=== PATIENT | female | born 2000 | race Caucasian/White ===

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

== ENCOUNTER → 2019-05-10 | Outpatient (CLI) | payer MEDICAID, OTHER ==
[2019-05-10 17:16] LABS: Basophils % (A) 0 %; Eosinophils # (A) 0.1 k/uL (0-0.7); Eosinophils % (A) 1 %; HCT 42.1 % (34.0-46.0); Lymphocytes # (A) 2.3 k/uL (1.0-4.8); Lymphocytes % (A) 34 %; MCH 29.8 pg (25.0-35.0); MCHC 33.2 g/dL (31.0-37.0); MCV 89.7 fL (80.0-100.0); Mean Platelet Volume 6.9; Monocytes # (A) 0.4 k/uL (0-1.0); Monocytes % (A) 6 %; Neutrophils # (A) 3.9 k/uL (1.3-7.7); Neutrophils % (A) 58 %; Platelet Count 286 k/uL (150-450); RDW 12.9 % (11.5-15.5); WBC 6.8 k/uL (4.0-11.0)
[2019-05-10 23:39] LABS: Albumin 4.9 g/dL (3.80-4.90); Albumin/Globulin Ratio 2.45 (1.60-3.17); Anion Gap 8.6 mmol/L (4.00-12.00); Calcium 10.1 mg/dL (8.7-10.3); Carbon Dioxide 27.4 mmol/L (21.6-31.8); Potassium 3.6 mmol/L (3.5-5.5); Total Bilirubin 0.4 mg/dL (0.3-1.2); Total Protein 6.9 g/dL (6.2-8.2)
== END | disposition home or self-care (01) ==
LOC: LABWHC1 16:40
PROVIDERS: ATTEND Family Medicine
DX: Z00.00 Encounter for general adult medical examination without abnormal findings (principal); R53.83 Other fatigue
CPT/HCPCS: 36415; 80053; 82465; 82607; 84443; 85025

== ENCOUNTER → 2019-11-16 | Outpatient (CLI) | payer MEDICAID, OTHER ==
--- NOTE | 2019-11-16 09:05 | US ---
EXAMINATION TYPE: US transvaginal DATE OF EXAM: 11/16/2019 COMPARISON: NONE CLINICAL HISTORY: R10.2 PELVIC PAIN,, Z97.[address] Pelvic pain since IUD insertion February 2019 TECHNIQUE: Transvaginal (TV). Transvaginal sonographic images were medically necessary to better ass ess the IUD placement as bladder was not full. Date of LMP: intermittent menstrual cycles with IUD EXAM MEASUREMENTS: Uterus: 5.9 x 3.8 x 2.9 cm Endometrial Stripe: 0.5 cm Right Ovary: 3.0 x 1.4 x 1.7 cm Left Ovary: 2.3 x 2.7 x 2.7 cm 1. Uterus: Anteverted with curved cervix noted 2. Endometrium: IUD is noted within endometrial canal in upper and mid endometrium 3. Right Ovary: multifollicular with largest simple follicle = 0.8 x 0.7 x 0.6cm 4. Left Ovary: multifollicular with largest involuting cyst = 1.5 x 1.5 x 1.8cm Spectral, color and waveform Doppler imaging shows good arterial and venous flow within the ovaries ; there is no evidence for ovarian torsion. 5. Bilateral Adnexa: wnl 6. Posterior cul-de-sac: wnl IMPRESSION: 1. Intrauterine device is centrally located within the endometrial canal spanning the lower and upper uterine segments. 2. Physiologic follicular changes of the ovaries. No endometrial thickening.
== END | disposition home or self-care (01) ==
LOC: RADUSWWP 07:32
PROVIDERS: ATTEND Obstetrics & Gynecology
DX: R10.2 Pelvic and perineal pain (principal); Z97.5 Presence of (intrauterine) contraceptive device
CPT/HCPCS: 76830

== ENCOUNTER → 2020-01-20 | Outpatient (CLI) | payer MEDICAID, OTHER ==
--- NOTE | 2020-01-22 00:48 | CT ---
EXAMINATION TYPE: CT abdomen pelvis w con DATE OF EXAM: 01/20/2020 COMPARISON: NONE HISTORY: 19-year-old female Back pain, urgency and burning urination, headaches TECHNIQUE: Contiguous axial scanning of the abdomen and pelvis following administration of 100 ml Iso paris 300 IV contrast. Delayed images through the kidneys and coronal/sagittal reconstructions perform ed. CT DLP: 310.7 mGycm Automated exposure control for dose reduction was used. FINDINGS: LUNG BASES: No significant abnormality is appreciated. LIVER/GB: No significant abnormality is appreciated. PANCREAS: No significant abnormality is seen. SPLEEN: No significant abnormality is seen. ADRENALS: No significant abnormality is seen. KIDNEYS: No significant abnormality is seen. Symmetric uptake and excretion of contrast from both kid neys. LYMPH NODES: No mesenteric or retroperitoneal lymphadenopathy. REPRODUCTIVE ORGANS: Uterus anteverted and oblique towards the right. IUD appears appropriately situa constantine within the uterine cavity. Small amount of air is noted within the left lateral fornix. Fluid yolanda ng the endovaginal canal can be correlated clinically. Otherwise, no abnormal fluid collection in the pelvis or pelvic lymphadenopathy. Bladder urine distended. No abnormal wall thickening seen. Neither ovary clearly identified. BOWEL: Some prominent fluid-filled small bowel loops in the left mid abdomen. There may be some shor t segment wall thickening along the splenic flexure of the colon, coronal image 44. Mild scattered st ool. Normal appendix. BONES: No osseous destructive process. IMPRESSION: 1. SOME PROMINENT FLUID-FILLED SMALL BOWEL LOOPS IN THE LEFT MID ABDOMEN AND SHORT SEGMENT MILD WALL THICKENING AT THE HEPATIC FLEXURE OF THE COLON. CORRELATE FOR POSSIBLE ENTEROCOLITIS. 2. FLUID WITHIN THE VAGINAL CANAL. CORRELATE FOR ANY VAGINAL DISCHARGE VERSUS MENSTRUATION. 3. IUD APPEARS APPROPRIATELY POSITIONED.
== END ==
LOC: RADCTMAIN 12:25
PROVIDERS: ATTEND Family Medicine
DX: K63.89 Other specified diseases of intestine (principal); N89.8 Other specified noninflammatory disorders of vagina; Z97.5 Presence of (intrauterine) contraceptive device
CPT/HCPCS: 74177; Q9967

== ENCOUNTER → 2020-05-29 | Outpatient (CLI) | payer MEDICAID, OTHER | END | disposition home or self-care (01) | LOC: LABWHC1 09:01 | PROVIDERS: ATTEND Otolaryngology | DX: Z53.9 Procedure and treatment not carried out, unspecified reason (principal) ==

== ENCOUNTER → 2020-06-04 | Outpatient (CLI) | payer MEDICAID, OTHER ==
[2020-06-05 13:21] LABS: Crab IgE <0.10 kU/L (<0.10); Crab IgE Class CLASS 0
[2020-06-05 13:23] LABS: Pork IgE Class CLASS 0
[2020-06-05 13:24] LABS: Beef IgE <0.10 kU/L (<0.10); Beef IgE Class CLASS 0
[2020-06-05 13:25] LABS: Yeast Bakers/Brew IgE <0.10 kU/L (<0.10); Yeast Bakers/Brew IgE Class CLASS 0
[2020-06-05 13:26] LABS: Chicken IgE Class CLASS 0; Gluten IgE Class CLASS 0
[2020-06-05 13:27] LABS: Cow's Milk IgE Class CLASS 0; Egg White IgE <0.10 kU/L (<0.10); Peanut IgE <0.10 kU/L (<0.10); Potato IgE <0.10 kU/L (<0.10); Potato IgE Class CLASS 0; Soybean IgE <0.10 kU/L (<0.10)
== END | disposition home or self-care (01) ==
LOC: LABWHC1 07:34
PROVIDERS: ATTEND Nurse Practitioner Family
DX: J30.89 Other allergic rhinitis (principal)
CPT/HCPCS: 36415; 86001; 86003

== ENCOUNTER → 2020-12-27 | Outpatient (CLI) | payer OTHER ==
[2020-12-27 15:52] LABS: Basophils # (A) 0.1 k/uL (0-0.2); Basophils % (A) 1 %; Eosinophils # (A) 0.1 k/uL (0-0.7); Eosinophils % (A) 1 %; HCT 44.3 % (34.0-46.0); Lymphocytes # (A) 2.1 k/uL (1.0-4.8); Lymphocytes % (A) 30 %; MCH 30.3 pg (25.0-35.0); MCV 89.4 fL (80.0-100.0); Mean Platelet Volume 7.3; Monocytes # (A) 0.3 k/uL (0-1.0); Monocytes % (A) 5 %; Neutrophils # (A) 4.3 k/uL (1.3-7.7); Neutrophils % (A) 63 %; Platelet Count 255 k/uL (150-450); RBC 4.95 m/uL (3.80-5.40); RDW 12.7 % (11.5-15.5); WBC 6.9 k/uL (3.8-10.6)
[2020-12-27 16:52] LABS: Erythrocyte Sedimentation Rate 3 mm/hr (0-20)
[2020-12-28 00:43] LABS: Anti-DNA, DS unit <1.0 IU/mL; Cyclic Citrull Pep IgG Unit <0.5 U/mL; Cyclic Citrullinated Pep IgG NEGATIVE (NEGATIVE); DNA Double-Stranded NEGATIVE (NEGATIVE)
[2020-12-28 00:58] LABS: African American GFR (CKD) 143.5 (60.0-200.0); Anion Gap 10.4 mmol/L (4.00-12.00); BUN/Creat Ratio 21.43 Ratio (12.00-20.00); C Reactive Protein, High Sens 0.59 mg/L (0.000-3.000); Calcium 10.3 mg/dL (8.7-10.3); Carbon Dioxide 27.6 mmol/L (21.6-31.8); Non-African American GFR(CKD) 123.9 (60.0-200.0)
== END | disposition home or self-care (01) ==
LOC: LABWHC1 14:49
PROVIDERS: ATTEND Family Medicine
DX: M25.50 Pain in unspecified joint (principal); R53.83 Other fatigue; N76.0 Acute vaginitis; B37.3 Candidiasis of vulva and vagina
CPT/HCPCS: 36415; 80048; 85025; 85652; 86038; 86141; 86200; 86225; 86235; 86431

== ENCOUNTER → 2022-03-26 | Outpatient (CLI) | payer MEDICAID, OTHER | END | disposition home or self-care (01) | LOC: LABWHC1 10:55 | PROVIDERS: ATTEND Otolaryngology | DX: J02.9 Acute pharyngitis, unspecified (principal); R43.0 Anosmia; J06.9 Acute upper respiratory infection, unspecified; R43.9 Unspecified disturbances of smell and taste | CPT/HCPCS: U0003; C9803 ==

== ENCOUNTER → 2023-03-19 | Outpatient (CLI) | payer MEDICAID, OTHER ==
[2023-03-19 15:44] LABS: ALT 21 U/L (8-44); AST 24 U/L (13-35); African American GFR (CKD) 147.2 (60.0-200.0); Albumin 4.9 g/dL (3.8-4.9); Albumin/Globulin Ratio 2.12 (1.60-3.17); Alkaline Phosphatase 69 U/L (41-126); BUN/Creat Ratio 20.58 Ratio (12.00-20.00); Blood Urea Nitrogen 12.8 mg/dL (9.0-27.0); Calcium 10.3 mg/dL (8.7-10.3); Carbon Dioxide 25.7 mmol/L (20.0-27.5); Chloride 103 mmol/L (96-109); Chol/HDL Ratio 2.33 Ratio; Globulin 2.3 g/dL (1.6-3.3); Glucose 73 mg/dL (70-110); LDL Cholesterol,Calculated 99.2 mg/dL (0.0-131.0); Potassium 3.8 mmol/L (3.5-5.5); Sodium 140 mmol/L (135-145); Total Protein 7.3 g/dL (6.2-8.2); VLDL Calculation 16.04 mg/dL (5.00-40.00)
== END | disposition home or self-care (01) ==
LOC: LABWHC1 09:23
PROVIDERS: ATTEND Nurse Practitioner Family
DX: E78.5 Hyperlipidemia, unspecified (principal); R53.83 Other fatigue
CPT/HCPCS: 36415; 80053; 80061

== ENCOUNTER → 2023-04-15 | Outpatient (CLI) | payer MEDICAID, OTHER | END | disposition home or self-care (01) | LOC: LABWHC1 16:02 | PROVIDERS: ATTEND Nurse Practitioner Family | DX: N91.2 Amenorrhea, unspecified (principal); Z87.59 Personal history of other complications of pregnancy, childbirth and the puerperium | CPT/HCPCS: 36415; 84702 ==

== ENCOUNTER → 2023-06-11 | Outpatient (CLI) | payer MEDICAID, OTHER ==
[2023-06-11 11:11] LABS: Basophils # (A) 0.07 X 10*3/uL (0.00-0.10); Basophils % (A) 1.4 %; Eosinophils # (A) 0.04 X 10*3/uL (0.04-0.35); Eosinophils % (A) 0.8 %; HCT 49.6 % (37.2-46.3); HGB 15.5 d/dL (12.0-15.0); Lymphocytes # (A) 1.95 X 10*3/uL (0.90-5.00); Lymphocytes % (A) 39.5 %; MCH 30.3 pg (27.0-32.0); MCHC 31.3 d/dL (32.0-37.0); MCV 96.9 FL (80.0-97.0); Mean Platelet Volume 10.1 FL (9.5-12.2); Monocytes # (A) 0.38 X 10*3/uL (0.20-1.00); Monocytes % (A) 7.7 %; NRBC Per 100 WBC 0 X 10*3/uL (0.00-0.01); Neutrophils # (A) 2.49 X 10*3/uL (1.80-7.70); Neutrophils % (A) 50.4 %; Platelet Count 254 X 10*3/uL (140-440); RBC 5.12 X 10*6/uL (4.10-5.20); RDW 12.9 % (11.5-14.5); WBC 4.94 X 10*3/uL (4.50-10.00)
[2023-06-11 11:46] LABS: ALT 33 U/L (8-44); AST 22 U/L (13-35); Albumin 5.1 d/dL (3.8-4.9); Albumin/Globulin Ratio 1.96 Ratio (1.60-3.17); Alkaline Phosphatase 61 U/L (41-126); BUN/Creat Ratio 13.57 Ratio (12.00-20.00); Blood Urea Nitrogen 9.5 mg/dL (9.0-27.0); Calcium 10.5 mg/dL (8.7-10.3); Carbon Dioxide 24.7 mmol/L (21.6-31.8); Chloride 102 mmol/L (96-109); Chol/HDL Ratio 2.31 Ratio; Globulin 2.6 d/dL (1.6-3.3); Glucose 73 mg/dL (70-110); LDL Cholesterol,Calculated 99.4 mg/dL (0.0-131.0); Sodium 139 mmol/L (135-145); Total Bilirubin 0.5 mg/dL (0.3-1.2); Total Protein 7.7 d/dL (6.2-8.2); VLDL Calculation 17.94 mg/dL (5.00-40.00)
== END | disposition home or self-care (01) ==
LOC: LABWHC1 07:02
PROVIDERS: ATTEND Family Medicine
DX: Z00.00 Encounter for general adult medical examination without abnormal findings (principal); B37.31 Acute candidiasis of vulva and vagina
CPT/HCPCS: 36415; 80053; 80061; 82306; 83036; 84443; 85025

== ENCOUNTER → 2023-08-17 | Outpatient (CLI) | payer OTHER ==
[2023-08-17 15:53] LABS: HCT 44.8 % (37.2-46.3); HGB 14.8 d/dL (12.0-15.0); MCH 29.2 pg (27.0-32.0); MCV 88.4 FL (80.0-97.0); Mean Platelet Volume 10.4 FL (9.5-12.2); NRBC Per 100 WBC 0 X 10*3/uL (0.00-0.01); Platelet Count 287 X 10*3/uL (140-440); RBC 5.07 X 10*6/uL (4.10-5.20); RDW 13.1 % (11.5-14.5)
[2023-08-17 16:08] LABS: Glucose 71 mg/dL (70-110)
[2023-08-17 17:51] LABS: Hepatitis B Surface Antigen Nonreactive
[2023-08-17 20:39] LABS: HIV 2 AB Non-Reactive (Non-Reactive); HIV AB P24 Non-Reactive (Non-Reactive); HIV P24 AG Non-Reactive (Non-Reactive)
[2023-08-18 05:57] LABS: Toxoplasma Antibody (IgG) <3.0 IU/mL (<7.2); Toxoplasma Antibody (IgM) <3.0 AU/mL (<8.0)
== END | disposition home or self-care (01) ==
LOC: LABWHC1 11:18
PROVIDERS: ATTEND Obstetrics & Gynecology
DX: O26.811 Pregnancy related exhaustion and fatigue, first trimester (principal); Z3A.00 Weeks of gestation of pregnancy not specified
CPT/HCPCS: 36415; 82565; 82947; 85027; 86762; 86777; 86778; 86780; 86850; 86900; 86901; 87340; 87390

== ENCOUNTER → 2023-12-05 | Outpatient (CLI) | payer MEDICAID, OTHER ==
[2023-12-05 22:31] VITALS: BP 120/69; PULSE 97; RESP 17; TEMP 98.6
--- NOTE | 2023-12-09 09:23 | P.MSEPDOC ---
Presenting Problems - Arrival Data Date of Arrival on Unit: 12/05/23 Time of Arrival on Unit: 20:08 Mode of Transport: Wheelchair - Complaint OB-Reason for Admission/Chief Complaint: Vaginal Bleeding Comment: pt states when she went to the bathroom around 1914 she noticed red blood and blood clot the size of half dollar, pt did state that she had intercourse earlier today Medical History - Information : 1 Para: 0 Term: 0 : 0 Abortions: Spontaneous or Elective: 0 Number of Living Children: 0 - Gestational Age Gestational Age by NEYDA (wks/days): 28 Weeks and 2 Days - History Complications: Placenta Previa Review of Systems - Review of Systems Constitutional: No problems Breast: No problems ENT: No problems Cardiovascular: No problems Respiratory: No problems Gastrointestinal: No problems Genitourinary: No problems Musculoskeletal: No problems Neurological: No problems Skin: No problems Vital Signs - Temperature Temperature: 98.6 F Temperature Source: Temporal Artery Scan - Pulse Right Pulse Rate: 97 Pulse Assessment Method: Pulse Oximetry - Respirations Respiratory Rate: 17 Oxygen Delivery Method: Room Air O2 Sat by Pulse Oximetry: 99 - Blood Pressure Right Arm Blood Pressure: 120/69 Blood Pressure Mean: 86 Blood Pressure Source: Automatic Cuff Medical Screen Scoring - Cervical Exam Membranes: Intact - Uterine Contractions Frequency From (mins): 2 Frequency To (mins): 10 Duration From (seconds): 50 Duration To (seconds): 60 Resting: Soft to palpation - Assessment - Baby A Baseline FHR: 155 Heart Rate - NICHD Category: Category I (Normal) NST: Reactive Physician Notification - Physician Notified Physician Notified Date: 12/05/23 Physician Notified Time: 20:35 Physician: Misty Euceda New Order Received: Yes (speculum exam and watch for 1 hour) - Notification Comment Comment: Spoke with Dr Euceda at 214, discussed pt, fhr/strip, okay to d/c to home Maternal Triage Index - Maternal Triage Index Presenting for scheduled procedure w/no complaint: No - Stat/Priority 1 Stat Priority 1: No - Urgent/Priority 2 Urgent Priority 2: Yes Provider Notified: Misty Euceda Provider Notified Time: 20:35 Criteria Met for Priority 2: vaginal bleeding Disposition - Disposition OB Disposition: Discharge to home Discharge Date: 12/05/23 Discharge Time: 22:00 I agree with the RN Medical Screening Exam: Yes Case reviewed; plan agreed upon as documented in EMR&OBIX.: Yes Diagnosis: SPOTTING COMPLICATING , THIRD TRIMESTER
== END ==
LOC: FBPOP 20:08
PROVIDERS: ATTEND Obstetrics & Gynecology
DX: O26.853 Spotting complicating pregnancy, third trimester (principal); Z3A.28 28 weeks gestation of pregnancy
CPT/HCPCS: 59025; 99213

== ENCOUNTER 2023-12-07 11:18 | Observation (INO) | payer MEDICAID, BC, OTHER ==
[2023-12-07] MEDS ORDERED: LACTATED RINGERS 1,000 ML IV SCH (12:00)
[2023-12-07 12:35] LABS: Basophils % (A) 0 %; Eosinophils # (A) 0.1 k/uL (0-0.7); Eosinophils % (A) 1 %; HGB 11.4 gm/dL (11.4-16.0); Lymphocytes # (A) 1.6 k/uL (1.0-4.8); Lymphocytes % (A) 16 %; MCH 31.6 pg (25.0-35.0); MCHC 34.6 g/dL (31.0-37.0); MCV 91.2 fL (80.0-100.0); Monocytes # (A) 0.5 k/uL (0-1.0); Monocytes % (A) 5 %; Neutrophils # (A) 7.4 k/uL (1.3-7.7); Neutrophils % (A) 77 %; Platelet Count 236 k/uL (150-450); RBC 3.62 m/uL (3.80-5.40); RDW 12.9 % (11.5-15.5); WBC 9.6 k/uL (3.8-10.6)
--- NOTE | 2023-12-07 12:43 | P.HPOB ---
History of Present Illness H&P Date: 12/07/23 Chief Complaint: Vaginal bleeding, known placenta previa This patient is a pleasant 23-year-old 1 para 0 female estimated date of confinement 02/25/2024 estimated gestational age 28-4/7 weeks who. Presented to labor and delivery initially on Wednesday after having bleeding after intercourse. Patient's care is with Dr. Munoz. care is complicated by a known complete previa at 19 weeks with most recent ultrasound showing marginal placenta previa in October. Patient was to be on pelvic rest, however had intercourse on Wednesday and about 7 hours later began having bright red bleeding. Patient did report here to labor and delivery and at that time was not having significant bleeding and nonstress test was reassuring. Patient was subsequently discharged home. Patient noted dark red or brown discharge yesterday however passed a large right red clot today. care appears to be otherwise uncomplicated. Blood type is A+. Review of Systems Genitourinary: Reports as per HPI, Reports abnormal vaginal bleeding, Reports Past Medical History Past Medical History: GERD/Reflux History of Any Multi-Drug Resistant Organisms: None Reported Past Surgical History: No Surgical Hx Reported Past Anesthesia/Blood Transfusion Reactions: No Reported Reaction Past Psychological History: No Psychological Hx Reported Smoking Status: Former smoker, Vaper Past Alcohol Use History: None Reported Past Drug Use History: None Reported Medications and Allergies Home Medications Medication Instructions Recorded Confirmed Type Vit No.179/Iron/Folic 1 tab PO DAILY 12/05/23 12/07/23 History [ Tablet] Allergies Allergy/AdvReac Type Severity Reaction Status Date / Time No Known Allergies Allergy Verified 12/07/23 11:51 Exam Intake and Output 12/06/23 12/07/23 12/07/23 22:59 06:59 14:59 Other: Weight 56.699 kg - OBG Physical Exam Abdomen: bowel sounds normal, no diffuse tenderness, no bruit present, no guarding noted, no hepatomegaly, no splenomegaly, no mass Vulva: both: normal Vagina: Speculum exam shows dark red blood and no active bleeding Uterus: enlarged Results blood work shows she is A positive, rubella immune, RPR is nonreactive, hepatitis B is negative, HIV is nonreactive, ultrasound at 19 weeks showed a complete placenta previa however most recent ultrasound done on November 10 showed there to be a marginal anterior placenta previa. Result Diagrams: 12/07/23 12:10 Abnormal Lab Results - Last 24 Hours (Table) 12/07/23 Range/Units 12:10 RBC 3.62 L (3.80-5.40) m/uL Hct 33.0 L (34.0-46.0) % Assessment and Plan Assessment: This is a pleasant 23-year-old 1 para 0 female 28-4/7 weeks gestation with known placenta previa with second episode of vaginal bleeding most likely secondary to intercourse. Because this is her second episode I feel is best to admit her to the hospital for continuous monitoring, Celestone therapy and repeat ultrasound. I discussed this with the patient and her partner and they understand and agreeable to this treatment plan. (1) 28 weeks gestation of Current Visit: Yes Status: Acute Code(s): Z3A.28 - 28 WEEKS GESTATION OF SNOMED Code(s): 36239704 (2) Placenta previa Current Visit: Yes Status: Acute Code(s): O44.00 - COMPLETE PLACENTA PREVIA NOS OR WITHOUT HEMOR, UNSP TRI SNOMED Code(s): 54388723 (3) Vaginal bleeding Current Visit: Yes Status: Acute Code(s): N93.9 - ABNORMAL UTERINE AND VAGINAL BLEEDING, UNSPECIFIED SNOMED Code(s): 841822049
[2023-12-07 12:48] LABS: Amphetamine Screen,Urine Not Detected (NotDetected); Barbiturate Screen,Urine Not Detected (NotDetected); Benzodiazepines Screen,Urine Not Detected (NotDetected); Cocaine Screen,Urine Not Detected (NotDetected); Methadone Screen, Urine Not Detected (NotDetected); Opiate Screen,Urine Not Detected (NotDetected); Oxycodone Screen, Urine Not Detected (NotDetected); Phencyclidine Screen,Urine Not Detected (NotDetected); Tricyclic Antidepressant,Urine Not Detected (NotDetected); Urn Cannabinoid Scrn Not Detected (NotDetected)
[2023-12-07] MEDS: BETAMET ACET-BETAMETH SOD PHOS 6 MG/ML MDV IM SCH (12:56)
[2023-12-07 13:53] VITALS: RESP 16
--- NOTE | 2023-12-07 16:30 | US ---
EXAMINATION TYPE: US OB >= 14 wk fetus DATE OF EXAM: 12/07/2023 COMPARISON: None CLINICAL INDICATION: Female, 23 years old with history of Known placenta previa, bleeding; vaginal bl eeding, known marginal placenta previa TECHNIQUE: Transabdominal (TA) GESTATIONAL AGE / DATING Physician Established: (28 weeks/4 days) EDC: 02/25/24 Dates by LMP: LMP unknown Dates by First Scan: no prior exam here Dates by Current Scan: (28 weeks/6 days) EDC: 02/23/24 SURVEY IUP: Single PLACENTA: Anterior PREVIA: Low Lying to marginal JEN: 16.8 cm Normal CERVICAL LENGTH (transabdominal: norm > 3.0cm): 3.2 cm BIOMETRY PRESENTATION: Vertex LIE: Longitudinal BPD: 6.9 cm 28 weeks / 0 days HC: 26.6 cm 29 weeks / 0 days AC: 24.7 cm 29 weeks / 0 days FL: 5.5 cm 29 weeks / 1 days ESTIMATED WEIGHT IN GRAMS: 1307 grams ESTIMATED WEIGHT IN LBS/OZ: 2 lbs. 14 oz. WEIGHT PERCENTAGE BASED ON ESTABLISHED DATES: 50% HC/AC: 1.07 Normal FL/AC: 22% Normal HEART RATE: 156 bpm RHYTHM: Normal IMPRESSION: 1. Single intrauterine gestation estimated at 28 weeks 6 days gestation based on current ultrasound m easurements. Cardiac activity measures 156 bpm. 2. Placental tip is near the cervical os. This is borderline low lying or marginal. Previa is not diego ntified.
[2023-12-08 08:41] VITALS: BP 117/58; PULSE 92; TEMP 97.6
--- NOTE | 2023-12-08 12:36 | P.DS ---
Providers Date of admission: 12/07/23 12:27 Expected date of discharge: 12/08/23 Attending physician: Layne Munoz Primary care physician: Stated None - Discharge Diagnosis(es) (1) Marginal placenta previa with intrapartum hemorrhage in third trimester Current Visit: Yes Status: Acute (2) 28 weeks gestation of Current Visit: Yes Status: Acute Hospital Course: Pt was admitted with second episode of bleeding. She had sex this last Wednesday and lifted a tote full of jamil decor. She then had a little bright red bleeding which turned brown and no active bleeding in triage-sent home per Dr Euceda. She represented yesterday with another episode of bright red bleeding-one clot about half dollar size. She was admitted by Dr Prakash and given a course of celestone. US showed no abruption and marginal previa. NSTs have been reactive. HEr bleeding is dark brown and had 2 small clots today, both about dime sized. She did have some irritability on toco today but it resolved quickly. Pt will be discharged home after the 2nd dose of celestone. Instructed again on pelvic rest and not to do heavy lifting. She will f/u with me in 1-2 weeks. Plan - Discharge Summary New Discharge Prescriptions: No Action Vit No.179/Iron/Folic [ Tablet] 1 tab PO DAILY Discharge Medication List Vit No.179/Iron/Folic [ Tablet] 1 tab PO DAILY 12/05/23 [History] Follow up Appointment(s)/Referral(s): Layne Munoz DO [Doctor of Osteopathic Medicine] - 1 Week Discharge Disposition: HOME SELF-CARE
[2023-12-08] MEDS: BETAMET ACET-BETAMETH SOD PHOS 6 MG/ML MDV IM SCH (12:43)
== END 2023-12-08 12:52 | disposition home or self-care (01) ==
LOC: FBPOP 11:18 → 4FBP 12:27
PROVIDERS: ADMIT Obstetrics & Gynecology; ATTEND Obstetrics & Gynecology
DX: O44.33 Partial placenta previa with hemorrhage, third trimester (principal); O99.613 Diseases of the digestive system complicating pregnancy, third trimester; K21.9 Gastro-esophageal reflux disease without esophagitis; Z3A.28 28 weeks gestation of pregnancy; Z87.891 Personal history of nicotine dependence
CPT/HCPCS: 59025; 99214; 96372 ×2; 85025; 80306; 76805; G0378 ×2; J0702 ×2; 36415

== ENCOUNTER 2024-01-05 19:47 | Inpatient (IN) | payer MEDICAID, BC, OTHER ==
[2024-01-05 20:53] LABS: Basophils % (A) 0 %; Eosinophils # (A) 0.1 k/uL (0-0.7); Eosinophils % (A) 1 %; HCT 34.5 % (34.0-46.0); HGB 11.9 gm/dL (11.4-16.0); Lymphocytes % (A) 17 %; MCH 30.3 pg (25.0-35.0); MCHC 34.3 g/dL (31.0-37.0); MCV 88.2 fL (80.0-100.0); Mean Platelet Volume 8.1; Monocytes # (A) 0.5 k/uL (0-1.0); Monocytes % (A) 5 %; Neutrophils # (A) 8.9 k/uL (1.3-7.7); Neutrophils % (A) 76 %; Platelet Count 253 k/uL (150-450); RBC 3.92 m/uL (3.80-5.40); RDW 13.1 % (11.5-15.5); WBC 11.6 k/uL (3.8-10.6)
[2024-01-05] MEDS: LACTATED RINGERS 1,000 ML IV SCH (21:05)
[2024-01-05] MEDS ORDERED: TRANEXAMIC 1,000 MG/100ML-NACL 1,000 MG in EMPTY BAG 1 BAG IV PRN (21:06)
[2024-01-05] MEDS ORDERED: CARBOPROST TROMETHAMINE 250 MCG/ML 1 ML AMP IM PRN (21:06)
[2024-01-05] MEDS ORDERED: OXYTOCIN 10 UNIT/ML 1 ML VIAL IM PRN (21:06)
[2024-01-05] MEDS ORDERED: miSOPROStoL 200 MCG TAB PO PRN (21:06)
[2024-01-05] MEDS ORDERED: METHYLERGONOVINE 0.2 MG/ML 1 ML AMP IM PRN (21:06)
[2024-01-05] MEDS: LACTATED RINGERS 1,000 ML IV ONE (21:10)
--- NOTE | 2024-01-05 21:17 | P.HPOB ---
History of Present Illness H&P Date: 01/05/24 Chief Complaint: Vaginal bleeding, known placenta previa This patient is a pleasant 23-year-old 1 para 0 female estimated date of confinement 02/25/2024 estimated gestational age 32-6/7 weeks who presents to labor and delivery with complaints of copious amounts of vaginal bleeding. Patient's care is per Dr. Munoz is complicated by a known placenta previa. Patient was admitted by myself on December 17 for similar episode and was given Celestone at that time. Patient's had no further bleeding until this morning and presented here to labor and delivery. At that time Dr. Munoz ordered an ultrasound which apparently was normal and patient was discharged home follow up in the office. Patient had increased bleeding later today and repeat presents to labor and delivery. Speculum exam at this time shows a large dark red clot and patient is having contractions every 2-6 minutes that are perceivable. I did contact Dr. Singh (maternal medicine) and phone conversation/consultation with him I discussed her clinical situation and he did not feel that she was stable for transfer and recommended to proceed with delivery at this time. Since the patient is having a significant amount of bleeding and nghia we'll proceed with immediate delivery at this time by section. I did discuss this with the patient and her mother in the understand the indication for delivery and the fact that the baby will need to be stabilized and transferred to a different facility. Review of Systems Constitutional: Reports as per HPI Genitourinary: Reports Past Medical History Past Medical History: GERD/Reflux History of Any Multi-Drug Resistant Organisms: None Reported Past Surgical History: No Surgical Hx Reported Past Anesthesia/Blood Transfusion Reactions: No Reported Reaction Smoking Status: Never smoker Past Alcohol Use History: None Reported Past Drug Use History: None Reported - Past Family History Mother Family Medical History: No Reported History Medications and Allergies Home Medications Medication Instructions Recorded Confirmed Type Vit No.179/Iron/Folic 1 tab PO DAILY 12/05/23 01/05/24 History [ Tablet] Allergies Allergy/AdvReac Type Severity Reaction Status Date / Time No Known Allergies Allergy Verified 01/05/24 19:52 Exam Intake and Output 01/05/24 01/05/24 01/05/24 06:59 14:59 22:59 Other: Weight 60.328 kg - OBG Physical Exam Abdomen: bowel sounds normal, no diffuse tenderness, no bruit present, no guarding noted, no hepatomegaly, no splenomegaly, no mass Vagina: normal moisture (Speculum examination the bedside shows large amount of dark red blood. I'm unable to visualize cervix), no discharge Uterus: enlarged Results Patient's blood type is A positive, rubella immune, RPR is nonreactive, hepat itis B is negative, HIV is nonreactive, group B strep is unknown, ultrasounds morning showed a vertex infant estimated weight 4 lbs. 6 oz. Result Diagrams: 01/05/24 20:22 Abnormal Lab Results - Last 24 Hours (Table) 01/05/24 Range/Units 20:22 WBC 11.6 H (3.8-10.6) k/uL Neutrophils # 8.9 H (1.3-7.7) k/uL Assessment and Plan Assessment: This is a pleasant 23-year-old 1 para 0 female 32-6/7 weeks gestation with known history of placenta previa now with significant vaginal bleeding and contractions. Per consultation with maternal- medicine, recommendations are to proceed with delivery at this time due to the instability of transfer. Recommendations are to proceed immediately with section for delivery. I did contact anesthesia and the waist presser. I had a long discussion with the patient and her mother about clinical situation indication for delivery and a understand and all questions are answered. (1) 32 weeks gestation of Current Visit: Yes Status: Acute Code(s): Z3A.32 - 32 WEEKS GESTATION OF SNOMED Code(s): 3480604 (2) Placenta previa Current Visit: No Status: Acute Code(s): O44.00 - COMPLETE PLACENTA PREVIA NOS OR WITHOUT HEMOR, UNSP TRI SNOMED Code(s): 78996903 (3) Vaginal bleeding Current Visit: No Status: Acute Code(s): N93.9 - ABNORMAL UTERINE AND VAGINAL BLEEDING, UNSPECIFIED SNOMED Code(s): 062026728
[2024-01-05] MEDS: CITRIC ACID-SODIUM CITRATE 15 ML CUP PO ONE (21:18)
[2024-01-05] MEDS ORDERED: MORPHINE SULFATE (PF) 0.3 MG/0.3 ML SYR ONE (21:35)
[2024-01-05] MEDS ORDERED: PHENYLEPHRINE-0.9% NACL SYG 1,000 MCG/10 ML SYRINGE ONE (21:35)
[2024-01-05] MEDS ORDERED: NALBUPHINE 10 MG/ML (10 ML MDV) ONE (21:35)
[2024-01-05] MEDS ORDERED: KETOROLAC 15 MG/ML 1 ML VIAL ONE (21:35)
[2024-01-05] MEDS ORDERED: ONDANSETRON 4 MG/2 ML VIAL ONE (21:35)
[2024-01-05] MEDS ORDERED: OXYTOCIN 30 UNITS/500 ML NS BAG IV ONE (21:35)
[2024-01-05] MEDS ORDERED: ONDANSETRON 4 MG/2 ML VIAL IVP PRN (22:25)
[2024-01-05] MEDS ORDERED: diphenhydrAMINE 25 MG CAP PO PRN (22:25)
[2024-01-05] MEDS ORDERED: SIMETHICONE 80 MG CHEWABLE PO PRN (22:25)
[2024-01-05] MEDS ORDERED: ZOLPIDEM 5 MG TAB PO PRN (22:25)
[2024-01-05] MEDS ORDERED: METOCLOPRAMIDE 5 MG/ML 2 ML VIAL IVP PRN (22:25)
[2024-01-05] MEDS ORDERED: LANOLIN CREAM 5 GM TUBE TOPICAL PRN (22:25)
[2024-01-05] MEDS ORDERED: NALOXONE 0.4 MG/ML 1 ML VIAL IV PRN (22:25)
[2024-01-05] MEDS ORDERED: OXYTOCIN 30 UNITS/500 ML NS 30 UNIT in SALINE 1 500ML.BAG IV SCH (22:30)
--- NOTE | 2024-01-05 22:42 | P.OP ---
Date of Procedure: 01/05/24 Preoperative Diagnosis: #1: 32-6/7 week intrauterine . #2: Known placenta previa. #3: Significant vaginal bleeding, recurrent episode. Postoperative Diagnosis: Same Procedure(s) Performed: Primary low transverse section Anesthesia: spinal Surgeon: Dmitriy Torres Plumbing Designer #1: Tammy Otoole Estimated Blood Loss (ml): 1,000 Pathology: other (Placenta) Condition: stable Disposition: floor Indications for Procedure: Please see dictated H&P for intimate details of this patient's admission. In brief summary this pleasant 23-year-old 1 para 0 female 32-6/7 weeks gestation admitted to labor and delivery with recurrent vaginal bleeding and known placenta previa. Examination shows a large amount of bleeding and I discussed with maternal- medicine plan for delivery or transfer and I felt was best to proceed with delivery here. Patient understands a section and its risks and risks of infection, bleeding, possible injury to bowel, bladder, vessels, and other organs. All the patient's questions are answered and a written consent is obtained. Operative Findings: This is a vigorous viable female Apgars are 5 at 1 minute 7 and 5 minutes and 8 at 10 minutes. has spontaneous respirations and good cry. There was a complete anterior placenta previa. Description of Procedure: This patient has a Marie catheter placed to straight drain. She subsequent taken to the operating room where she sat up and spinal anesthetic is administered without incident. With an adequate level of anesthesia she has abdominal prep and drape. Scalpels and taken Pfannenstiel skin incision is made. A second scalpel is taken down the fascia and the fascia scored with a knife. Fascial incision extended bilaterally using the Lozano scissors. Fascia is then dissected off the rectus muscles sharply. Rectus muscles are the peritoneum was identified and entered sharply. Peritoneal incision extended superior and inferior without difficulty. Bladder blade is then placed. The bladder peritoneum was then taken sharply off the lower uterine segment. Scalpel is then taken and a low transverse uterine incision is then made. Using a hemostat I into the uterine cavity bluntly. Immediately upon entering uterine cavity there is placental tissue. The uterine incision is extended bluntly. It is apparent at this time that there is a complete previa anterior extending down over the cervical os. I reached through the placenta and diabetes 's head through the incision with fundal pressure. After the infant's head is delivered the Center is carefully dissected off the infant's head and the mouth and nares are bulb suctioned. With fundal pressure and we have delivery the rest of this 's body. This is a vigorous viable female infant Apgars were 5 at 1 minute, 7 at 5 minutes and 8 at 10 minutes. The umbilical cord was immediately clamped and cut infant is handed off to special care nurses in attendance with the business solutions architect. The placenta is then manually removed from the uterine cavity piece meal. This is sent off to pathology. Uterus is then externalized and uterine incision demarcated with Witt clamps. Uterine incision then closed using 0 Vicryl running locked fashion 2 layers. Additional sutures are placed in the midline for added hemostasis. The bladder peritoneum was then reapproximated using a 3-0 Vicryl. Excess fluid is removed from the abdomen and pelvis. Uterus, tubes, ovaries appear normal for term gestation. Uterus placed back into the abdomen. The parietal peritoneum was then identified and closed using 0 Vicryl running fashion. Rectus muscles reapproximated Vicryl interrupted fashion. Fascial incision is then closed using 0 Vicryl as well. Fascial incision is intact and hemostatic. Subcutaneous tissues and closed using a 3-0 Vicryl. Skin is and closed using leonel. All counts are correct 3. There are no complications. Estimated blood loss is approximately 1000 mL. is taken to special care for evaluation transfer mother's taken birthing suite in satisfactory condition.
[2024-01-06] MEDS: ACETAMINOPHEN TAB 500 MG TAB PO SCH (01:32)
[2024-01-06] MEDS: diphenhydrAMINE 50 MG/ML 1 ML VIAL IVP PRN (01:32)
[2024-01-06] MEDS: LACTATED RINGERS 1,000 ML IV SCH (01:33)
[2024-01-06] MEDS: KETOROLAC 15 MG/ML 1 ML VIAL IVP SCH (04:30)
[2024-01-06] MEDS: IBUPROFEN 600 MG TAB PO SCH (04:30)
[2024-01-06] MEDS: SENNOSIDES-DOCUSATE SODIUM 1 EACH TAB PO SCH (07:37)
[2024-01-06 08:05] LABS: Basophils # (A) 0.1 k/uL (0-0.2); Basophils % (A) 1 %; Eosinophils % (A) 0 %; HCT 35.5 % (34.0-46.0); HGB 11.2 gm/dL (11.4-16.0); Hypochromasia Marked; Lymphocytes # (A) 1.2 k/uL (1.0-4.8); Lymphocytes % (A) 9 %; MCH 29.9 pg (25.0-35.0); MCHC 31.6 g/dL (31.0-37.0); Mean Platelet Volume 8.2; Monocytes # (A) 0.6 k/uL (0-1.0); Monocytes % (A) 4 %; Neutrophils # (A) 11.3 k/uL (1.3-7.7); Neutrophils % (A) 85 %; Platelet Count 211 k/uL (150-450); RBC 3.75 m/uL (3.80-5.40); RDW 13.1 % (11.5-15.5); WBC 13.3 k/uL (3.8-10.6)
[2024-01-06 08:16] LABS: MCV 94.7 fL (80.0-100.0)
--- NOTE | 2024-01-06 08:22 | P.PN ---
Progress Note - Text Progress Note Date: 01/06/24 (8443) Anesthesia Postop day 1 Subjective: Status Post section with Duramorph. Patient seen and examined. Doing well without complaint. VAS 3/10. Mild nauseatolerable. No vomiting or pruritus. Advised medications available. Denies fever. Gross lower extremity strength intact. Without apparent anesthetic complications. Objective: Vital signs reviewed Heart: Regular Rate Lungs: Good chest excursion Abdomen: Appears nondistended Assessment: Status post section with Duramorph postop day 1 Plan: 1. Continue current care with your medical management. Anticipated end to the duration of the Duramorph around surgery time today. You may see increased pain needs around this time. 2. This note was dictated using [employer] software. Please be advised there is a potential for misspellings or errors in title vehicle service attendant.
[2024-01-06 11:32] VITALS: RESP 16
--- NOTE | 2024-01-07 07:21 | P.PNOBGPC ---
Subjective - Subjective Principal diagnosis: s/p primary low transverse postop day 1 Interval history: Patient seen and examined. Denies nausea, vomiting, chest pain, shortness of breath Patient reports: Reports appetite normal, Reports voiding normally, Reports pain well controlled, Reports ambulating normally Objective - Vital Signs Latest vital signs: Vital Signs Temp Pulse Resp BP Pulse Ox 01/07/24 04:00 97.6 F 99 16 100/63 01/06/24 20:00 97.8 F 98 16 107/65 01/06/24 16:00 97.3 F L 90 16 110/62 99 01/06/24 11:31 98.4 F 98 16 100/67 98 01/06/24 07:37 98.8 F 90 13 116/74 Intake and Output 01/06/24 01/07/24 01/07/24 22:59 06:59 14:59 Output Total 600 Balance -600 Output: Urine 600 Other: # Voids 1 1 - Exam Lungs: bilateral: normal Chest: Normal S1, Normal S2 Extremities: Present: normal Abdomen: Present: normal appearance, soft. Absent: distention, tenderness Incision: Present: normal, dry, intact Uterus: Present: normal, firm - Labs Labs: Abnormal Lab Results - Last 24 Hours (Table) 01/06/24 Range/Units 07:25 WBC 13.3 H (3.8-10.6) k/uL RBC 3.75 L (3.80-5.40) m/uL Hgb 11.2 L (11.4-16.0) gm/dL Neutrophils # 11.3 H (1.3-7.7) k/uL Assessment and Plan (1) Status post primary low transverse section Current Visit: Yes Status: Acute Code(s): Z98.891 - HISTORY OF UTERINE SCAR FROM PREVIOUS SURGERY SNOMED Code(s): 486778838 Plan: 1. Increase ambulation 2. Continue
--- NOTE | 2024-01-07 07:23 | P.DS ---
Providers Date of admission: 01/05/24 21:00 Expected date of discharge: 01/07/24 Attending physician: Dmitriy Torres Primary care physician: Stated None - Discharge Diagnosis(es) (1) Status post primary low transverse section Current Visit: Yes Status: Acute Hospital Course: She presented at 32 weeks and 6 days with a third vaginal bleed with placenta previa. Earlier in the day and ultrasound and said that she did not have labia and the longer but when she underwent her primary low transverse for hemorrhage it was noted that she did have a complete placenta previa. Baby [facility] in stable condition. Postoperative course was uneventful. She denies nausea, vomiting, chest pain, shortness of breath or calf pain. Her hemoglobin is stable at 11.2. Patient will be discharged home postoperative day #2 in stable condition to follow-up with me in one week. Plan - Discharge Summary New Discharge Prescriptions: No Action Vit No.179/Iron/Folic [ Tablet] 1 tab PO DAILY Discharge Medication List Vit No.179/Iron/Folic [ Tablet] 1 tab PO DAILY 12/05/23 [History] Follow up Appointment(s)/Referral(s): Layne Munoz DO [Doctor of Osteopathic Medicine] - 02/15/24 10:00 am (Post Op Appointment 01-18 at 1:30pm) Discharge Disposition: HOME SELF-CARE
[2024-01-07 08:29] VITALS: BP 101/66; PULSE 87; TEMP 98.6
== END 2024-01-07 12:20 | disposition home or self-care (01) | DRG 788 ==
LOC: FBPOP 19:47 → 4FBP 20:12 → OBSVTOIN 21:00
PROVIDERS: ADMIT Obstetrics & Gynecology; ATTEND Obstetrics & Gynecology
PROC: 10D00Z1 Extraction of Products of Conception, Low, Open Approach (ICD-10-PCS; principal; 2024-01-05 21:35)
DX: O44.13 Complete placenta previa with hemorrhage, third trimester (principal); K21.9 Gastro-esophageal reflux disease without esophagitis; O99.62 Diseases of the digestive system complicating childbirth; Z37.0 Single live birth; Z3A.32 32 weeks gestation of pregnancy; Z28.310 Unvaccinated for COVID-19; Z79.899 Other long term (current) drug therapy
CPT/HCPCS: 85025; 86850; 86900; 86901; 88307